=== PATIENT | male | born 1950 | race Hispanic/Latino ===

== ENCOUNTER 2024-08-09 05:56 | Day surgery (SDC) | payer OTHER ==
[2024-08-03 13:02] VITALS: BP 164/90; PULSE 68; RESP 16; TEMP 98.1
[2024-08-03 13:10] LABS: BASOPHILS # (AUTO) 0.04 K/uL (0.00-0.20); BASOPHILS % (AUTO) 0.6 % (0.0-5.0); EOSINOPHILS # (AUTO) 0.15 K/uL (0.00-0.70); EOSINOPHILS % (AUTO) 2.4 % (0.0-8.0); IMMATURE GRANULOCYTE ABSOLUTE 0.03 K/uL (0-1); LYMPHOCYTES % (AUTO) 15.6 % (21.0-51.0); MEAN CORPUSCULAR HEMOGLOBIN 27.1 pg (27.0-33.0); MEAN CORPUSCULAR HGB CONC 32.3 g/dL (32.0-36.0); MONOCYTES # (AUTO) 0.7 K/uL (0.1-1.0); MONOCYTES % (AUTO) 10.3 % (3.0-13.0); NEUTROPHILS # (AUTO) 4.5 K/uL (1.8-7.7); NEUTROPHILS % (AUTO) 70.6 % (40.0-77.0); PLATELET COUNT (AUTO) 247 K/uL (130-400); RED BLOOD CELL COUNT(AUTO) 5.12 MIL/uL (4.50-6.20); RED CELL DISTRIBUTION WIDTH 15.2 % (11.0-15.5); WHITE BLOOD COUNT (AUTO) 6.3 K/uL (4.8-10.8)
[2024-08-03 13:24] LABS: CREATININE 1.2 mg/dL (0.5-1.3); POTASSIUM 4.6 mmol/L (3.5-5.1)
[2024-08-03 13:27] LABS: INR 1.02 (0.85-1.15); PROTHROMBIN TIME 11.4 SEC (9.6-11.6)
[2024-08-03 13:29] LABS: PARTIAL THROMBOPLASTIN TIME 32.1 SEC (26.3-35.5)
[~2024-08-09] VITALS: Ht 170.2 cm; Wt 77.5 kg
[~2024-08-09 05:56] MED LIST: AMLO-257 PO; APIX5TAB PO; BUSP10TA3 PO; EMPA25TA PO; ESCI-8 PO; FERS325 PO; FOLI1 PO; LABE100T7 PO; LUBI8CAP PO; MELA5CAP PO; METF-444 PO; OLME40TA18 PO; OMEP40CA21 PO; POTA15TA11 PO; ROSU10TA22 PO; VITA-427 PO
[2024-08-09 06:10] VITALS: BP 197/82; PULSE 67; RESP 18; TEMP 98.1
[2024-08-09] MEDS ORDERED: HEParin 10,000 UNIT/10ML (1,000 UNIT/ML) VIAL ONE (07:20)
[2024-08-09] MEDS ORDERED: HEParin-NS 1,000 UNIT/500 ML 500 ML IV ONE (07:20)
[2024-08-09] MEDS ORDERED: LIDOCAINE HCL 400MG/20ML VIAL ONE (07:37)
[2024-08-09] MEDS ORDERED: MEPERIDINE-PF 50 MG/ML SYG ONE ×2 (08:03→09:08)
[2024-08-09] MEDS ORDERED: MIDAZOLAM HCL 1 MG/ML 2ML VIAL ONE ×3 (08:04→09:08)
[2024-08-09] MEDS: 0.9%NACL 1000ML 1,000 ML IV SCH (08:34)
[2024-08-09 10:50] VITALS: BP 124/73; PULSE 68; RESP 16; TEMP 97.3
[2024-08-09 11:05] VITALS: BP 121/73; PULSE 71; RESP 15
[2024-08-09 11:20] VITALS: BP 103/63; PULSE 70; RESP 16
[2024-08-09 11:35] VITALS: BP 101/63; PULSE 68; RESP 15
[2024-08-09 12:05] VITALS: BP 105/65; PULSE 77; RESP 15
== END 2024-08-09 12:35 | disposition home or self-care (01) ==
LOC: DAH 05:56
PROVIDERS: ATTEND Internal Medicine Cardiovascular Disease
DX: I48.3 Typical atrial flutter (principal); I25.10 Atherosclerotic heart disease of native coronary artery without angina pectoris; I10 Essential (primary) hypertension; E11.9 Type 2 diabetes mellitus without complications; E78.5 Hyperlipidemia, unspecified; Z95.1 Presence of aortocoronary bypass graft; Z96.642 Presence of left artificial hip joint; Z79.84 Long term (current) use of oral hypoglycemic drugs; Z79.01 Long term (current) use of anticoagulants; Z79.899 Other long term (current) drug therapy
CPT/HCPCS: 80048; 85025; 85610; 85730; 36415; 93653; 82948; C1894 ×2; C1732 ×2; A4649 ×2; C1760 ×2; J3490; J7030; J1644 ×2; J2250 ×3; J2175 ×2; A4215; A4222; A4221; A4663; A4216; A4606; A4223 ×3; 99156; 99157

== ENCOUNTER 2025-04-23 05:55 | Day surgery (SDC) | payer OTHER ==
--- NOTE | 2025-04-22 11:04 | EKG ---
[facility] Test Date: 2025-04-22 Test Time: 11:49:41 Pat Name: ANNALISA BILLS Department: [facility] Room: [facility] Gender: M Etcher Machine: [id number] : [id number] Requested By: RJ AMADOR Order Number: [id number] Reading MD: Storm Girard Measurements Intervals [place] Rate: 67 P: 60 NJ: 220 QRS: 58 QRSD: 99 T: 1 QT: 398 QTc: 419 Interpretive Statements Sinus rhythm Prolonged NJ interval Consider anteroseptal infarct Compared to ECG 06/27/2015 10:25:19 First degree AV block now present Myocardial infarct finding now present Sinus tachycardia no longer present Electronically Signed On 04-24-2025 11:49:32 BONDING EQUIPMENT OPERATOR by Storm Girard Please click the below link to view image of tracing.
[2025-04-22 11:14] LABS: IMMATURE GRANULOCYTE ABSOLUTE 0.02 K/uL (0-1); NUCLEATED RED BLOOD CELLS 0.0 % (0.0-0.19); PLATELET COUNT (AUTO) 224 K/uL (130-400); RED BLOOD CELL COUNT(AUTO) 5.04 MIL/uL (4.50-6.20); RED CELL DISTRIBUTION WIDTH 15.5 % (11.0-15.5); WHITE BLOOD COUNT (AUTO) 6.0 K/uL (4.8-10.8)
[2025-04-22 11:17] VITALS: BP 161/78; PULSE 73; RESP 18; TEMP 97.5
[2025-04-22 11:19] LABS: CREATININE 1.2 mg/dL (0.5-1.3); GLOMERULAR FILTR. RATE CALC 63.0 mL/min (>90); GLUCOSE,RANDOM 160.0 mg/dL (70-105); SODIUM SERUM 135.0 mmol/L (136-145); UREA NITROGEN, BLOOD 25.0 mg/dL (7-18)
[2025-04-22 11:24] LABS: APPEARANCE,URINE CLEAR (CLEAR); GLUCOSE, URINE (UA) >=1000 mg/dL (NEGATIVE); LEUKOCYTE ESTERASE ,URINE NEGATIVE Leu/uL (NEGATIVE); NITRATE,URINE NEGATIVE (NEGATIVE); OCCULT BLOOD,URINE NEGATIVE (NEGATIVE)
[2025-04-22 11:39] LABS: ADD UA MICROSCOPIC YES
[2025-04-22 11:44] LABS: SQUAMOUS EPITHELIAL CELL,UR RARE /HPF (0-2)
[2025-04-22 12:01] LABS: INR 0.99 (0.85-1.15)
--- NOTE | 2025-04-22 13:11 | HMCIMG ---
EXAM: CR Chest, 1 View. CLINICAL HISTORY: PRE OP COMPARISON: None provided. FINDINGS: LUNGS: There is no mass, infiltrate, or acute pulmonary abnormality. PLEURAL SPACES: No evidence of pleural effusion or pneumothorax. MEDIASTINUM: The cardiomediastinal silhouette is within normal limits. Prior sternotomy. BONES: No acute osseous abnormality. IMPRESSION: No acute cardiopulmonary pathology is evident. /Sandy
[2025-04-23] VITALS (10 sets, daily range): BP systolic 122–159; BP diastolic 64–80; PULSE 58–76; RESP 11–19; TEMP 97.1–98.4
[~2025-04-23] VITALS: Ht 165.1 cm; Wt 73.7 kg
[~2025-04-23 05:55] MED LIST changes: -APIX5TAB PO; +ASPI-1443 PO; -BUSP10TA3 PO; +CHOL200074 PO; -ESCI-8 PO; +LABE-10 PO; -LABE100T7 PO; -MELA5CAP PO; -METF-444 PO; +METF-446 PO; -OLME40TA18 PO; +TELM40TA8 PO
[2025-04-23] MEDS: 0.9%NACL 1000ML 1,000 ML IV SCH (06:48)
[2025-04-23] MEDS ORDERED: NITROGLYCERIN 50MG VIAL ONE (07:11)
[2025-04-23] MEDS ORDERED: IOHEXOL-350 50ML VIAL IV ONE (07:11)
[2025-04-23] MEDS ORDERED: IOHEXOL 350 MG/ML 100ML INFUS..BTL IV ONE ×2 (07:11→09:29)
[2025-04-23] MEDS ORDERED: HEParin-NS 1,000 UNIT/500 ML 1,000 ML IV ONE (07:11)
[2025-04-23] MEDS ORDERED: LIDOCAINE HCL 400MG/20ML VIAL ONE (07:11)
[2025-04-23] MEDS ORDERED: MIDAZOLAM HCL 1 MG/ML 2ML VIAL ONE (07:27)
[2025-04-23] MEDS ORDERED: BIVALIRUDIN 250 MG/VIAL IV ONE ×2 (07:31→09:34)
[2025-04-23] MEDS ORDERED: ASPIRIN 325MG EC TAB PO ONE (08:47)
[2025-04-23] MEDS ORDERED: IOHEXOL-350 75 ML VIAL IV ONE (08:56)
[2025-04-23] MEDS ORDERED: HEParin-NS 1,000 UNIT/500 ML 500 ML IV ONE (08:59)
[2025-04-23] MEDS ORDERED: NITROGLYCERIN 4.9GM SPRAY 60 SPRAY/BOT SPRY TL ONE (09:13)
[2025-04-23] MEDS ORDERED: DEXTROSE 50%-WATER 50 ML DISP.SYRIN IV PRN (10:30)
[2025-04-23] MEDS ORDERED: 0.9%NACL 1000ML 1,000 ML IV SCH (10:30)
--- NOTE | 2025-04-23 11:16 | PRN ---
DATE OF PROCEDURE: 04/23/2025 PROCEDURE PERFORMED: LEFT HEART CATHETERIZATION, LEFT VENTRICULOGRAM, LEFT AND RIGHT SELECTIVE CORONARY ANGIOGRAM, INJECTION OF ALBA TO THE LAD, INJECTION OF SAPHENOUS VEIN Y-GRAFT TO THE DIAGONAL ONE AND OM1, INJECTION OF SAPHENOUS VEIN GRAFT TO THE DISTAL RCA, AND INJECTION OF SAPHENOUS VEIN GRAFT TO THE PDA (CHRONICALLY OCCLUDED), PTCA/ESTUARDO TO THE BODY OF THE SVG-DISTAL RCA WITH A 3.0 X 23 MM XIENCE JEEVAN POINT ESTUARDO POST DILATED WITH A 3.5 X 15 NC EUPHORA TO 18 ATMOSPHERES, ATTEMPTED WIRE CANNULATION OF A RAMUS INTERMEDIATE BRANCH (UNSUCCESSFUL DUE TO TORTUOSITY AND SEVERE STENOSIS, BUT THIS WAS A SMALL 1.5 MM VESSEL) CHIROPRACTIC TEACHER: RJ AMADOR MD, [facility] INDICATION: ABNORMAL STRESS TEST DEMONSTRATING INFERIOR ISCHEMIA, AND HISTORY OF REMOTE CABG X5 TO ASSESS STABILITY OF REMOTE VEIN GRAFTS PROCEDURE NOTE: After informed consent was obtained the patient was prepped and draped in the usual sterile fashion. A 6 [place] arterial sheath was inserted in the right femoral artery using a micropuncture technique with ultrasound guidance with a front wall, first pass puncture. This was performed after fluoroscopic identification of bony landmarks to facilitate a more accurate puncture of the right common femoral artery. The arterial sheath was aspirated and flushed. A 6 [place] pigtail catheter was then advanced over a J-tipped guidewire to the ascending aorta and was prolapsed into the left ventricle. The catheter was aspirated and flushed and pressure measurements were obtained. A left ventriculogram was then performed in a 30 [place] projection. A pullback procedure was then performed, and this catheter was removed over a J-tipped guidewire. A 6F JL-4 was then advanced to the ascending aorta over a J-tipped guidewire, was aspirated and flushed, and was used for selective left coronary angiograms in multiple obliquities. A JR-4 was advanced in a similar fashion to the ascending aorta over a J-tipped guidewire and was used for selective right coronary angiograms in multiple obliquities with findings as outlined below. The JR4 was then used for selective injection of the saphenous vein Y-graft to the diagonal one and OM1, selective injection of the saphenous vein graft to the distal RCA, and a six [place]err[place]ian RCB catheter was used for selective injection of the saphenous vein graft to the PDA which was occluded proximally. A six [place]ian IM catheter was used to inject the ALBA which was difficult to cannulate and arose in the ascending portion of the left subclavian before it angulated toward the left arm. PERCUTANEOUS CORONARY INTERVENTION: A six [place] RCB guide catheter was used for the intervention and provided excellent support. A 300 cm 0.014 in Choice PT traverse the lesion easily in the body of the SVG-RCA. Subsequently a Spyder FX 3.0 embolic protection device was then advanced, the choice PT wire was removed, and the capture device was released. A 3.0 x 23 mm XIENCE Skypoint stent was deployed and post dilated with a 3.5 x 15 NC Euphora balloon to 18 atmospheres to a -10% residual. Final results were excellent without perforation or edge dissection. A right common femoral angiogram was performed to assess suitability for Perclose suture closure and the Perclose device was deployed in standard fashion. Perclose suture closure was successful without bleeding or hematoma. The patient tolerated the procedure well and was returned to the holding area in stable condition. FINDINGS: LEFT HEART HEMODYNAMICS: The LVEDP prior to LV-gram was 11 mm of mercury and 9 mm of mercury after LV- gram. There was no aortic valve gradient on pullback. LEFT VENTRICULOGRAM: A left ventriculogram in a 30 degree [place] projection demonstrated a hyperdynamic LV with an LVEF of 65-70%. There was no inferior wall motion abnormality. There was no angiographic MR. CORONARY ANGIOGRAM: LEFT MAIN: The left main coronary had a 60% stenosis. LEFT ANTERIOR DESCENDING: The LAD was totally occluded at its ostium and the mid and distal LAD filled via a widely patent ALBA graft to the LAD. There was a patent saphenous vein Y- graft to the diagonal one which was totally occluded at its ostium. The other branch of the Y graft provided excellent perfusion of an OM1 branch. There was excellent surgical revascularization of the LAD and diagonal system. LEFT CIRCUMFLEX: The left circumflex had a 99% ostial stenosis and there was a 99% ostial stenosis and a ramus intermediate branch which measured about 1.5 mm. The ongoing left circumflex was filled via the Y graft to the diagonal one and OM1. There was excellent surgical revascularization of the left circumflex. RAMUS INTERMEDIATE BRANCH: The ramus intermediate branch had a 99% ostial stenosis but was relatively small at about 1.5 to 1.75 mm. RIGHT CORONARY ARTERY: The RCA was chronically occluded proximally. There was a patent saphenous vein graft to the distal RCA with a 95% stenosis in the midbody. There was a chronically occluded saphenous vein graft to the PDA and the PDA was chronically occluded. IMPRESSION: 4/5 grafts patent with patent ALBA graft to the LAD, patent saphenous vein Y- graft to the diagonal one and OM1, patent but 95% stenosis in the body of the SVG to the distal RCA, and chronically occluded SVG to the PDA. Excellent surgical revascularization of the LAD, diagonal, and OM1. Successful PTCA/ESTUARDO to the body of the SVG to the distal RCA with a 3.0 x 23 mm XIENCE Skypoint drug eluting stent, with a SpItsOner FX 3.0 embolic protection device. Attempted wire cannulation of a 99% angulated stenosis and a 1.5-1.75 mm ramus intermediate vessel, which failed. RECOMMENDATION: Routine dual antiplatelet therapy for one year. Excellent surgical revascularization which appears otherwise stable. COMPLICATIONS OF PROCEDURE: None, the patient tolerated the procedure well and was returned to his room in stable condition. HEMOSTASIS: Perclose suture closure successful without bleeding or hematoma. ESTIMATED BLOOD LOSS: 10 mL. CONTRAST TOTAL: 310 mL. RJ AMADOR MD Apr 23, 2025 11:16
--- NOTE | 2025-04-23 14:08 | NUR ---
REPORT: HAND-OFF COMMUNICATION GIVEN TO TYRON BALTAZAR RN
== END 2025-04-23 16:27 | disposition home or self-care (01) ==
LOC: DAH 05:55
PROVIDERS: ATTEND Internal Medicine Cardiovascular Disease
DX: R94.39 Abnormal result of other cardiovascular function study (principal); I25.810 Atherosclerosis of coronary artery bypass graft(s) without angina pectoris; I10 Essential (primary) hypertension; E78.5 Hyperlipidemia, unspecified; E11.9 Type 2 diabetes mellitus without complications; I48.92 Unspecified atrial flutter; Z79.01 Long term (current) use of anticoagulants; Z83.3 Family history of diabetes mellitus; Z82.49 Family history of ischemic heart disease and other diseases of the circulatory system; Z79.899 Other long term (current) drug therapy; Z98.890 Other specified postprocedural states
CPT/HCPCS: 80048; 83880; 85025; 85610; 85730; 81001; 36415; 71045; 93005; 93459; 99156; 99157 ×6; 82948 ×2; A4223 ×3; C1769 ×3; C1894 ×2; C1725; C1887 ×3; C1760 ×2; C1884; Q9965 ×3; C1874; J3010; J3490 ×2; J7030; J1644 ×3; J2250; J0583 ×2; Q9967 ×4; A4215; A4222; A4221; A4663; A4216; A4606; C9604; 96360; 96361